=== PATIENT | male | born 1955 | race African-American/Black ===

== ENCOUNTER 2019-01-05 22:31 | Emergency (ER) | payer OTHER ==
[~2019-01-05] VITALS: Ht 177.8 cm; Wt 88.5 kg
[~2019-01-05 22:31] MED LIST: ARTIFICIAL TEAR15 ML RIGHT EYE; ASPIRIN EC81 MG ORAL; HYDROCHLOROTH12.5 M2 ORAL; HYDROCHLOROTHIA25 MG ORAL
[2019-01-05] MEDS ORDERED: ATORVASTATIN CA20 MG ORAL (22:40)
[2019-01-05] MEDS ORDERED: COLACE100 MG ORAL (22:40)
[2019-01-05] MEDS ORDERED: AMLODIPINE BES2.5 MG ORAL (22:40)
--- NOTE | 2019-01-05 22:55 | NUR ---
ED Nurse Note: Walkin patient presents with complaints of continued cough.
[2019-01-05 22:56] VITALS: BP 174/91
--- NOTE | 2019-01-05 23:05 | NUR ---
ED Nurse Note: ERMD at bedside.
[2019-01-05] MEDS ORDERED: PROMETHAZINE-C118 M1 ORAL (23:22)
[2019-01-05] MEDS ORDERED: ALBUTEROL SULF8.5 GM INH (23:22)
--- NOTE | 2019-01-05 23:26 | NUR ---
ED Nurse Note: Patient cleared for discharge. patient verbalized understanding of discharge instructions. PAtient able to ambulate with a cane on the right side. Patient escorted to discharge desk prior to departure with all personal belongings. ID band removed.
[2019-01-05 23:28] VITALS: BP 174/91
--- NOTE | 2019-01-06 01:10 | Emergency Room Report ---
History of Present Illness General Chief Complaint: Upper Respiratory Illness Source: Patient Present Illness HPI 63-year-old male presents ED for evaluation. States that is been experiencing a cough times one week. Also notes congestion and runny nose. Cough is dry, worse at night. Denies fevers or chills. Denies chest pain or shortness of breath. Denies smoking. Denies sick contacts or recent travel. No other aggravating relieving factors. Denies any other associated symptoms Allergies: Coded Allergies: No Known Allergies (Unverified , 07/28/14) Patient History Past Medical History: HTN, CVA/TIA Past Surgical History: none Social History: Denies: smoking, alcohol use, drug use Immunizations: UTD Reviewed Nursing Documentation: PMH: Agreed; PSxH: Agreed Nursing Documentation-PMH Past Medical History: No History, Except For Hx Hypertension: Yes Hx Cerebrovascular Accident: Yes - 2010, LEFT SIDED WEAKNESS Hx Paralysis: Yes - LEFT-SIDED Hx Dizziness: Yes - LAST TIME WAS 8 MONTHS AGO, WENT TO ER [facility] Hx Syncope: Yes - FIRST EPISODE TODAY Hx Numbness: Yes - LEFT FOOT, DULL SENSATION Hx Weakness: Yes - LEFT UPPER AND LOWER EXTREMITIES Hx Neurologic Surgery: No Hx Brain Shunt: No Review of Systems All Other Systems: negative except mentioned in HPI Physical Exam Vital Signs Date Time Temp Pulse Resp B/P (MAP) Pulse Ox O2 Delivery O2 Flow Rate FiO2 01/05/19 22:36 98.4 80 22 93 Room Air 01/05/19 22:56 174/91 Sp02 EP Interpretation: reviewed, normal General Appearance: no apparent distress, alert, GCS 15, non-toxic Head: normocephalic, atraumatic Eyes: bilateral eye normal inspection, bilateral eye PERRL ENT: hearing grossly normal, normal pharynx, no angioedema, normal voice Neck: full range of motion, supple/symm/no masses Respiratory: chest non-tender, lungs clear, normal breath sounds, speaking full sentences Cardiovascular #1: regular rate, rhythm, no edema Cardiovascular #2: 2+ carotid (R), 2+ carotid (L), 2+ radial (R), 2+ radial (L) , 2+ dorsalis pedis (R), 2+ dorsalis pedis (L) Gastrointestinal: normal bowel sounds, non tender, soft, non-distended, no guarding, no rebound Rectal: deferred Genitourinary: normal inspection, no CVA tenderness Musculoskeletal: back normal, gait/station normal, normal range of motion, non- tender Neurologic: alert, oriented x3, responsive, motor strength/tone normal, sensory intact, speech normal Psychiatric: judgement/insight normal, memory normal, mood/affect normal, no suicidal/homicidal ideation Reflexes: 3+ bicep (R), 3+ bicep (L), 3+ tricep (R), 3+ tricep (L), 3+ knee (R) , 3+ knee (L) Skin: normal color, no rash, warm/dry, well hydrated Lymphatic: no adenopathy Medical Decision Making Diagnostic Impression: Primary Impression: Bronchitis ER Course Hospital Course 63 yo M presents to ED c/o cough x 1 week Differential diagnoses include: URI, pharyngitis, otitis media, asthma Clinical course Patient placed on stretcher. After initial history, physical exam reveals an elderly male in no acute distress. Bilateral TM unremarkable. No pharyngeal erythema. No tonsillar exudates. No lymphadenopathy. lungs clear. abdomen soft. Consideration for bronchitis with dry cough worse at night. Vital stable. Afebrile. Nontoxic appearing. Unlikely acute process such as pneumonia. Discussed findings with patient. We'll discharge with inhaler and cough medication. Safe for discharge close outpatient follow-up. States he has a PMD Diagnosis - bronchitis Stable and discharged home with Rx Albuterol, Promethazine. Instructed to followup with PMD. Return to ED if symptoms recur or worsen Last Vital Signs Date Time Temp Pulse Resp B/P (MAP) Pulse Ox O2 Delivery O2 Flow Rate FiO2 01/05/19 23:28 98.4 79 22 174/91 93 Room Air Status: improved Disposition: HOME, SELF-CARE Condition: Stable Scripts Codeine/Promethazine Hcl* (PROMETHAZINE-CODEINE SYRUP*) 118 Ml Syrup 5 ML ORAL Q6H PRN for For Cough, #118 ML 0 Refills Prov: Agapito Rivas MD 01/05/19 Albuterol Sulfate* (ALBUTEROL SULFATE MDI*) 8.5 Gm Hfa.aer.ad 2 PUFF INH Q6H, #1 EA 0 Refills Prov: Agapito Rivas MD 01/05/19 Patient Instructions: Acute Bronchitis, [id number] Agapito Rivas MD January 06, 2019 01:10
== END 2019-01-05 23:26 | disposition home or self-care (01) ==
LOC: EMR 23:00
DX: J20.9 Acute bronchitis, unspecified (principal); I10 Essential (primary) hypertension; Z86.73 Personal history of transient ischemic attack (TIA), and cerebral infarction without residual deficits; G81.94 Hemiplegia, unspecified affecting left nondominant side
CPT/HCPCS: 99282

== ENCOUNTER 2020-02-14 20:47 | Emergency (ER) | payer OTHER ==
[~2020-02-14] VITALS: Ht 175.3 cm; Wt 95.3 kg
[~2020-02-14 20:47] MED LIST changes: +ALBUTEROL SULF8.5 GM INH; +AMLODIPINE BES2.5 MG ORAL; +ATORVASTATIN CA20 MG ORAL; +COLACE100 MG ORAL; +PROMETHAZINE-C118 M1 ORAL
[2020-02-14 21:30] VITALS: BP 126/71
[2020-02-14 23:00] VITALS: BP 129/69
[2020-02-14] MEDS ORDERED: TYLENOL EXTRA500 MG ORAL (23:02)
--- NOTE | 2020-02-14 23:09 | Diagnostic Imaging Report ---
EXAM: CT Head Without Intravenous Contrast CLINICAL HISTORY: Trauma. Headache. TECHNIQUE: Axial computed tomography images of the head/brain without intravenous contrast. CTDI is 53.4 mGy and DLP is 1018.8 mGy-cm. One or more of the following dose reduction techniques were used: automated exposure control, adjustment of the mA and/or kV according to patient size, use of iterative reconstruction technique. COMPARISON: 07/28/2014. FINDINGS: Brain: Small vessel disease of aging. No abnormal extra-axial collection. A right basal ganglia and vanegas radiata chronic infarct is again noted. Extra-axial dilatation of the right lateral ventricle is again noted. No hemorrhage. Midline shift: No midline shift or mass-effect. Ventricles: There is prominence of the ventricular system, cortical sulci, basilar cisterns, compatible atrial atrophy. Bones/joints: Calvarium is unremarkable. No acute fracture. Soft tissues: Unremarkable. Sinuses: Unremarkable as visualized. No acute sinusitis. Mastoid air cells: Visualized sinuses and mastoid air cells are unremarkable. IMPRESSION: 1. Chronic infarct of the right basal ganglia and the right vanegas radiata and ex vacuo dilatation of the right lateral ventricle are again noted. 2. No significant change from the earlier study. 3. If there is concern for etiology such as early acute lacunar infarcts however, magnetic resonance imaging of the brain with diffusion-weighted sequences should be performed for follow-up.
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
== END 2020-02-14 23:05 | disposition home or self-care (01) ==
LOC: EMR 21:40
DX: S09.90XA Unspecified injury of head, initial encounter (principal); V43.52XA Car driver injured in collision with other type car in traffic accident, initial encounter; Y92.410 Unspecified street and highway as the place of occurrence of the external cause; I10 Essential (primary) hypertension; G81.94 Hemiplegia, unspecified affecting left nondominant side
CPT/HCPCS: 70450; Z7502; 99284